=== PATIENT | female | born 1995 | race Caucasian/White ===

== ENCOUNTER 2017-01-27 22:12 | Emergency (ER) | payer OTHER ==
[~2017-01-27] VITALS: Ht 162.6 cm; Wt 69.7 kg
[2017-01-28] MEDS ORDERED: NAPROSYN500 MG PO (00:25)
[2017-01-28 00:36] VITALS: BP 107/95
== END 2017-01-28 00:37 | disposition home or self-care (01) ==
LOC: EME 22:12
DX: S93.402A Sprain of unspecified ligament of left ankle, initial encounter (principal)
CPT/HCPCS: 73610; 99281; 99283